=== PATIENT | female | born 1970 | race Caucasian/White ===

== ENCOUNTER 2017-01-08 05:44 | Day surgery (SDC) | payer BC ==
[~2017-01-08] VITALS: Ht 156.2 cm; Wt 64.0 kg
[2017-01-08 06:30] VITALS: Ht 156.2 cm; Wt 64.0 kg
--- NOTE | 2017-01-08 07:38 | OPPN ---
Date/Time of Note Date/Time of Note DATE: 01/08/17 TIME: 07:36 Operative Report Preoperative Diagnosis abdominal pain Postoperative Diagnosis gastritis Operation/Procedure Performed EGD and biopsy Provider: OLIVERIO ARTEAGA MD Anesthesia Type: moderate sedation Estimated blood loss: none Transfusion Required: no Specimens gastric biopsy Grafts/Implants: none Complications: no OLIVERIO ARTEAGA MD Jan 08, 2017 07:38
[2017-01-08 07:57] VITALS: BP 108/57; PULSE 54; RESP 13
--- NOTE | 2017-01-08 08:11 | GILP ---
DATE OF PROCEDURE: 01/08/2017 PROCEDURE PERFORMED: Esophagogastroduodenoscopy and biopsy. PREOPERATIVE DIAGNOSIS: 1. Abdominal pain. 2. History of melena. POSTOPERATIVE DIAGNOSES: 1. Gastritis with erosions. 2. Gastric mucosal biopsies were taken for Helicobacter pylori test. INDICATIONS FOR PROCEDURE: Ms. Danny Hernández is a 46-year-old female patient who had upper abdominal pain not responding to therapy. The patient also noticed melena. The patient was scheduled for endoscopic examination for further evaluation. The procedure and possible complications were well explained to the patient. She understood and consented to the procedure. DESCRIPTION OF PROCEDURE: Under influence of fentanyl and Versed, the gastroscope was carefully introduced into the esophagus. Under direct vision, it was advanced to the stomach, into the pylorus, into the duodenal bulb, and descending duodenum. FINDINGS: Esophagus, mucosa was normal. Stomach, the patient had gastritis with erosions. Gastric mucosal biopsies were taken for H pylori test. Duodenum was normal. She tolerated the procedure very well. There was no complication from the procedure. At the end of procedure, she was awake with stable vital signs and she was discharged home in the care of her family. IMPRESSION: Please see postop diagnoses. PLAN: 1. Nexium 24 hours 22.3 mg p.o. q.a.m. 2. Await H pylori test report. Dictated By: MD JOCELIN Hodges/chava/booker Sandy#: [id number]/Document#: [id number]
[2017-01-08] MEDS ORDERED: FENTAnyl 50 MCG/ML VIAL ONE (11:49)
[2017-01-08] MEDS ORDERED: MIDAZOLAM 1 MG/ML 2 ML INJ ONE ×2 (11:49)
--- NOTE | 2017-01-13 11:56 | CONS ---
PATIENT NAME: JOSE G GARCIA DATE OF ADMISSION: DATE OF CONSULTATION: 12/15/2016 HISTORY OF PRESENT ILLNESS: I thank you very much for this kind referral. She is a 46-year-old female patient who has been referred to me for further evaluation of abdominal pain and change in the bowel habits. The patient has upper abdominal pain not responding to symptomatic medical therapy. She also had episodes of melena. He has been taking Advil for various pains. No past history of peptic ulcer disease. Appetite has been good and she is not losing any weight. There is no history of gallstones or liver disease. The patient complains lower abdominal pain and change in the bowel habits. No past history of colon neoplasm. She is not hypertensive or diabetic. No history of heart disease, lung problem, or kidney disease. SOCIAL HISTORY: Nonsmoker. No alcohol abuse. FAMILY HISTORY: The patient's father had pancreatic cancer. ALLERGIES: NO DRUG ALLERGIES. MEDICATION: None. PHYSICAL EXAMINATION: VITAL SIGNS: He is 5 feet 1 inch tall, weighs 140 pounds. HEART: Normal heart sounds. LUNGS: Lungs are clear. ABDOMEN: Abdomen is soft. No masses. Normal bowel sounds. NEUROLOGIC: Normal neurological exam. IMPRESSION: Upper abdominal pain with history of episodes of melena. The patient has been taking Advil. Change in the bowel habits and lower abdominal pain. The patient had abdominal CT scan and it was normal. The patient's father had pancreatic cancer. PLAN: The patient was advised to discontinue Advil. Endoscopy examination to rule out peptic ulcer disease. Elective colonoscopy at a later date. The procedures and possible complications were well explained to the patient. She understands and consents to the procedures. I thank you, once again, with warmest personal regards. Dictated By: MD JOCELIN Hodges/chava/ross /Document#: [id number]
== END 2017-01-08 12:42 | disposition home or self-care (01) ==
LOC: GIL 05:44
PROVIDERS: ATTEND Internal Medicine Gastroenterology
DX: K29.70 Gastritis, unspecified, without bleeding (principal)
CPT/HCPCS: 43239; 87081; J2250; J3010; Z7610